=== PATIENT | female | born 1970 | race Caucasian/White ===

== ENCOUNTER 2016-08-23 12:08 | Emergency (ER) | payer OTHER ==
[~2016-08-23] VITALS: Ht 165.1 cm; Wt 71.2 kg
[~2016-08-23 12:08] MED LIST: ACYCLOVIR400 MG PO; ETODOLAC400 M2 PO; HYDROCODONE BIT1 T11 PO; NO DAILY MEDS; PRINIVIL20 MG PO; SERTRALINE HYDR50 MG PO; SYNTHROID RP0.088 MG PO; TRAMADOL HCL50 MG PO; VICODIN ES 7501 TAB PO
[2016-08-23 12:12] VITALS: BP 124/78
[2016-08-23] MEDS ORDERED: PREDNISONE10 MG PO (12:38)
== END 2016-08-23 12:42 | disposition home or self-care (01) ==
LOC: ED 12:08
DX: L50.9 Urticaria, unspecified (principal); Z79.899 Other long term (current) drug therapy

== ENCOUNTER 2016-10-21 18:40 | Emergency (ER) | payer OTHER ==
[~2016-10-21] VITALS: Ht 165.1 cm; Wt 68.0 kg
[~2016-10-21 18:40] MED LIST changes: +PREDNISONE10 MG PO
[2016-10-21 19:15] VITALS: BP 133/89
== END 2016-10-21 21:14 | disposition home or self-care (01) ==
LOC: ED 18:40
DX: S92.414A Nondisplaced fracture of proximal phalanx of right great toe, initial encounter for closed fracture (principal); F17.200 Nicotine dependence, unspecified, uncomplicated; W22.8XXA Striking against or struck by other objects, initial encounter; Y93.89 Activity, other specified; Y92.89 Other specified places as the place of occurrence of the external cause; Y99.0 Civilian activity done for income or pay

== ENCOUNTER 2016-12-13 11:56 | Inpatient (IN) | payer OTHER ==
[~2016-12-13] VITALS: Ht 165.1 cm; Wt 64.9 kg
[2016-12-13 12:07] VITALS: BP 187/60
[2016-12-13 12:45] LABS: BASO % 0.4 % (0.0-1.0); EOS # 0.1 10*3/uL (0.0-0.4); EOS % 1.6 % (1.0-4.0); HEMATOCRIT 48.2 % (37.0-47.0); HEMOGLOBIN 15.9 g/dl (12.0-16.0); IG # 0.1 10*3/uL (0.0-0.1); LYMPH # 1.8 10*3/uL (1.3-4.4); LYMPH % 20.6 % (27.0-41.0); MEAN CORPUSCULAR HGB 32.3 pg (27.0-31.0); MEAN PLATELET VOLUME 8.7 fl (9.6-12.3); MONO # 0.4 10*3/uL (0.1-1.0); MONO % 4.9 % (3.0-9.0); NEUT # 6.4 10*3/uL (2.3-7.9); NEUT % 71.9 % (47.0-73.0); PLATELET COUNT AUTOMATED 398 10*3/uL (130-400); RED BLOOD COUNT 4.92 10*6/uL (4.10-5.10); RED CELL DISTRI WIDTH 13.1 % (0-14.5); WHITE BLOOD COUNT 8.9 10*3/uL (4.8-10.8)
[2016-12-13 13:01] LABS: ALBUMIN 4.8 gm/dl (3.1-4.5); ALKALINE PHOSPHATASE 109 U/L (45-117); BILIRUBIN, TOTAL 0.7 mg/dl (0.2-1.0); BUN 10 mg/dl (7-24); CARBON DIOXIDE 27 mmol/L (21-32); CHLORIDE 99 mmol/L (98-107); EST GLOM FILT AFRICAN AMERICAN > 60 ml/min; GLUCOSE 107 mg/dL (65-99); MAGNESIUM 2.3 mg/dL (1.5-2.1); POTASSIUM 3.5 mmol/L (3.5-5.1); SGOT/AST 23 IU/L (3-35); SGPT/ALT 26 U/L (12-78); SODIUM 137 mmol/L (136-145); TOTAL PROTEIN 8.8 gm/dL (6.4-8.2)
[2016-12-13 13:24] VITALS: BP 180/108
[2016-12-13 13:25] LABS: BILIRUBIN NEGATIVE (NEGATIVE); BLOOD TRACE-LYSED (NEGATIVE); CLARITY CLEAR (CLEAR); COLOR YELLOW (YELLOW); GLUCOSE NEGATIVE (NEGATIVE); KETONE NEGATIVE (NEGATIVE); LEUKO ESTERASE NEGATIVE (NEGATIVE); NITRITE NEGATIVE (NEGATIVE); PROTEIN NEGATIVE (NEGATIVE); SPECIFIC GRAVITY <= 1.005 (1.005-1.030); UROBILINOGEN 0.2 E.U./dl (0.2-1.0)
[2016-12-13 13:31] LABS: RBC 0-2 rbc/hpf (0-2); URINE REFLEX COMMENT NO (NO); WBC 0-2 wbc/hpf (0-5)
[2016-12-13 13:33] LABS: URINE AMPHETAMINES < 1000 (1000ng/ml); URINE BARBITURATES < 200 (200ng/ml); URINE COCAINE < 300 (300ng/ml)
[2016-12-13 16:00] VITALS: BP 142/96
[2016-12-13 20:00] VITALS: BP 140/92
[2016-12-14] VITALS: BP 141/86
[2016-12-14 04:00] VITALS: BP 110/78
[2016-12-14 08:00] VITALS: BP 121/89
[2016-12-14] MEDS ORDERED: ATARAX,VISTARIL50 MG PO (11:55)
[2016-12-14] MEDS ORDERED: METHOCARBAMOL750 M1 PO (11:55)
[2016-12-14] MEDS ORDERED: DICYCLOMINE HCL20 MG PO (11:55)
[2016-12-14] MEDS ORDERED: ZOFRAN 4 MG ED2 TAB PO (11:55)
[2016-12-14] MEDS ORDERED: ROPINIROLE HYD0.5 MG PO (11:55)
== END 2016-12-14 12:47 | disposition home or self-care (01) | DRG 897 ==
LOC: ED 11:56 → EDHOLD 12:33 → 4E 12:43
PROVIDERS: Emergency Medicine
DX: F11.23 Opioid dependence with withdrawal (principal); I10 Essential (primary) hypertension; E03.9 Hypothyroidism, unspecified; F17.200 Nicotine dependence, unspecified, uncomplicated; F12.10 Cannabis abuse, uncomplicated; Z79.899 Other long term (current) drug therapy; Z84.89 Family history of other specified conditions

== ENCOUNTER 2016-12-20 20:24 | Emergency (ER) | payer OTHER ==
[~2016-12-20] VITALS: Ht 165.1 cm; Wt 65.8 kg
[~2016-12-20 20:24] MED LIST changes: +ATARAX,VISTARIL50 MG PO; +DICYCLOMINE HCL20 MG PO; +METHOCARBAMOL750 M1 PO; +ROPINIROLE HYD0.5 MG PO; +ZOFRAN 4 MG ED2 TAB PO
[2016-12-20 20:36] VITALS: BP 154/114
[2016-12-20 21:13] LABS: BILIRUBIN NEGATIVE (NEGATIVE); BLOOD NEGATIVE (NEGATIVE); CLARITY CLEAR (CLEAR); COLOR YELLOW (YELLOW); GLUCOSE NEGATIVE (NEGATIVE); KETONE NEGATIVE (NEGATIVE); LEUKO ESTERASE NEGATIVE (NEGATIVE); NITRITE NEGATIVE (NEGATIVE); PROTEIN NEGATIVE (NEGATIVE); UROBILINOGEN 0.2 E.U./dl (0.2-1.0)
[2016-12-20 21:22] LABS: BACTERIA 1+
[2016-12-20 21:23] LABS: URINE AMPHETAMINES < 1000 (1000ng/ml); URINE BARBITURATES < 200 (200ng/ml); URINE COCAINE < 300 (300ng/ml)
[2016-12-20 21:24] LABS: URINE REFLEX COMMENT NO (NO)
[2016-12-20 22:38] LABS: BASO % 0.4 % (0.0-1.0); EOS # 0.1 10*3/uL (0.0-0.4); EOS % 1.5 % (1.0-4.0); HEMATOCRIT 42.2 % (37.0-47.0); HEMOGLOBIN 14.1 g/dl (12.0-16.0); LYMPH # 2.4 10*3/uL (1.3-4.4); LYMPH % 26.6 % (27.0-41.0); MEAN CORPUSCULAR HGB 32.4 pg (27.0-31.0); MEAN CORPUSCULAR HGB CONC 33.4 g/dl (33.0-37.0); MEAN PLATELET VOLUME 8.8 fl (9.6-12.3); MONO # 0.6 10*3/uL (0.1-1.0); MONO % 6.2 % (3.0-9.0); NEUT % 65.1 % (47.0-73.0); PLATELET COUNT AUTOMATED 364 10*3/uL (130-400); RED BLOOD COUNT 4.35 10*6/uL (4.10-5.10); RED CELL DISTRI WIDTH 12.7 % (0-14.5); WHITE BLOOD COUNT 9.2 10*3/uL (4.8-10.8)
[2016-12-20 22:53] LABS: ALBUMIN 4.4 gm/dl (3.1-4.5); ALKALINE PHOSPHATASE 104 U/L (45-117); BILIRUBIN, TOTAL 0.4 mg/dl (0.2-1.0); BUN 9 mg/dl (7-24); CARBON DIOXIDE 28 mmol/L (21-32); CHLORIDE 101 mmol/L (98-107); EST GLOM FILT AFRICAN AMERICAN > 60 ml/min; GLUCOSE 95 mg/dL (65-99); POTASSIUM 3.5 mmol/L (3.5-5.1); SGOT/AST 20 IU/L (3-35); SGPT/ALT 20 U/L (12-78); SODIUM 138 mmol/L (136-145); TOTAL PROTEIN 7.9 gm/dL (6.4-8.2)
== END 2016-12-20 23:16 | disposition left against medical advice (07) ==
LOC: ED 20:24
PROVIDERS: Emergency Medicine
DX: F11.10 Opioid abuse, uncomplicated (principal); R61 Generalized hyperhidrosis; F12.10 Cannabis abuse, uncomplicated; F17.200 Nicotine dependence, unspecified, uncomplicated; Z79.899 Other long term (current) drug therapy

== ENCOUNTER 2017-04-13 18:30 | Emergency (ER) | payer OTHER ==
[~2017-04-13] VITALS: Wt 65.8 kg
[2017-04-13 19:04] VITALS: BP 97/65
[2017-04-13 19:27] LABS: BASO # 0.1 10*3/uL (0.0-0.1); BASO % 0.4 % (0.0-1.0); EOS # 0.3 10*3/uL (0.0-0.4); EOS % 2.4 % (1.0-4.0); HEMOGLOBIN 13.8 g/dl (12.0-16.0); LYMPH # 2.5 10*3/uL (1.3-4.4); LYMPH % 20.7 % (27.0-41.0); MEAN CELL VOLUME 94.5 fl (81.0-99.0); MEAN CORPUSCULAR HGB 31.8 pg (27.0-31.0); MEAN CORPUSCULAR HGB CONC 33.7 g/dl (33.0-37.0); MEAN PLATELET VOLUME 8.6 fl (9.6-12.3); MONO # 0.9 10*3/uL (0.1-1.0); MONO % 7.3 % (3.0-9.0); NEUT # 8.4 10*3/uL (2.3-7.9); NEUT % 68.5 % (47.0-73.0); PLATELET COUNT AUTOMATED 338 10*3/uL (130-400); RED BLOOD COUNT 4.34 10*6/uL (4.10-5.10); RED CELL DISTRI WIDTH 12.8 % (0-14.5); WHITE BLOOD COUNT 12.3 10*3/uL (4.8-10.8)
[2017-04-13 19:44] LABS: BUN 13 mg/dl (7-24); CHLORIDE 96 mmol/L (98-107); CREATININE 1.13 mg/dL (0.55-1.02); POTASSIUM 3.7 mmol/L (3.5-5.1); SODIUM 135 mmol/L (136-145)
[2017-04-13 19:47] LABS: ACETAMINOPHEN (TYLENOL) < 2.0 ug/ml (10-30)
[2017-04-13 20:06] LABS: BILIRUBIN NEGATIVE (NEGATIVE); BLOOD TRACE-INTACT (NEGATIVE); CLARITY CLEAR (CLEAR); COLOR YELLOW (YELLOW); GLUCOSE NEGATIVE (NEGATIVE); KETONE NEGATIVE (NEGATIVE); LEUKO ESTERASE NEGATIVE (NEGATIVE); NITRITE NEGATIVE (NEGATIVE); SPECIFIC GRAVITY 1.015 (1.005-1.030); UROBILINOGEN 0.2 E.U./dl (0.2-1.0)
[2017-04-13 20:14] LABS: URINE AMPHETAMINES < 1000 (1000ng/ml); URINE BARBITURATES < 200 (200ng/ml); URINE BENZODIAZEPINES < 200 (200ng/ml); URINE CANNABINOIDS (THC) < 50 (50ng/ml); URINE COCAINE < 300 (300ng/ml); URINE METHADONE < 300 (300ng/ml); URINE OPIATES < 300 (300ng/ml)
[2017-04-13 20:17] LABS: BACTERIA 1+; WBC 0-2 wbc/hpf (0-5)
[2017-04-13 20:18] LABS: URINE PHENCYCLIDINE < 25 (25ng/ml)
== END 2017-04-13 20:21 | disposition left against medical advice (07) ==
LOC: ED 18:30
PROVIDERS: Emergency Medicine Emergency Medical Services
DX: T40.1X1A Poisoning by heroin, accidental (unintentional), initial encounter (principal); F12.10 Cannabis abuse, uncomplicated; I10 Essential (primary) hypertension; Y92.89 Other specified places as the place of occurrence of the external cause

== ENCOUNTER 2017-05-02 17:02 | Inpatient (IN) | payer OTHER ==
[~2017-05-02] VITALS: Ht 165.1 cm; Wt 63.6 kg
[~2017-05-02 17:02] MED LIST changes: -SYNTHROID RP0.088 MG PO; +Synthroid,Lev150 MCG PO
[2017-05-02] MEDS ORDERED: LISINOPRIL20 MG PO (17:26)
[2017-05-02 17:28] VITALS: BP 112/83
[2017-05-02 18:02] LABS: BASO % 0.4 % (0.0-1.0); EOS # 0.1 10*3/uL (0.0-0.4); EOS % 1.6 % (1.0-4.0); HEMATOCRIT 43.3 % (37.0-47.0); HEMOGLOBIN 14.7 g/dl (12.0-16.0); LYMPH # 2.1 10*3/uL (1.3-4.4); LYMPH % 26.4 % (27.0-41.0); MEAN CELL VOLUME 93.1 fl (81.0-99.0); MEAN CORPUSCULAR HGB 31.6 pg (27.0-31.0); MEAN CORPUSCULAR HGB CONC 33.9 g/dl (33.0-37.0); MEAN PLATELET VOLUME 8.8 fl (9.6-12.3); MONO # 0.6 10*3/uL (0.1-1.0); MONO % 7.5 % (3.0-9.0); NEUT # 5.1 10*3/uL (2.3-7.9); NEUT % 63.7 % (47.0-73.0); PLATELET COUNT AUTOMATED 388 10*3/uL (130-400); RED BLOOD COUNT 4.65 10*6/uL (4.10-5.10); RED CELL DISTRI WIDTH 12.8 % (0-14.5)
[2017-05-02] MEDS ORDERED: ZOVIRAX400 MG PO (18:09)
[2017-05-02] MEDS ORDERED: VISTARIL50 MG PO (18:09)
[2017-05-02 18:20] LABS: BILIRUBIN NEGATIVE (NEGATIVE); BLOOD TRACE-LYSED (NEGATIVE); CLARITY CLEAR (CLEAR); COLOR YELLOW (YELLOW); GLUCOSE NEGATIVE (NEGATIVE); KETONE TRACE (NEGATIVE); LEUKO ESTERASE NEGATIVE (NEGATIVE); NITRITE NEGATIVE (NEGATIVE); UROBILINOGEN 0.2 E.U./dl (0.2-1.0)
[2017-05-02 18:22] LABS: ALBUMIN 4.4 gm/dl (3.1-4.5); BUN 18 mg/dl (7-24); CHLORIDE 101 mmol/L (98-107); CREATININE 0.99 mg/dL (0.55-1.02); POTASSIUM 4.4 mmol/L (3.5-5.1); SGOT/AST 15 IU/L (3-35); SODIUM 136 mmol/L (136-145)
[2017-05-02 18:28] LABS: BACTERIA 2+; MUCOUS TRACE; URINE AMPHETAMINES < 1000 (1000ng/ml); URINE BARBITURATES < 200 (200ng/ml); URINE BENZODIAZEPINES < 200 (200ng/ml); URINE CANNABINOIDS (THC) < 50 (50ng/ml); URINE COCAINE < 300 (300ng/ml); URINE METHADONE < 300 (300ng/ml); URINE OPIATES < 300 (300ng/ml); WBC 0-2 wbc/hpf (0-5)
[2017-05-02 18:33] LABS: URINE PHENCYCLIDINE < 25 (25ng/ml)
[2017-05-02 18:34] LABS: ACETAMINOPHEN (TYLENOL) < 2.0 ug/ml (10-30); ALKALINE PHOSPHATASE 83 U/L (45-117); ETHYL ALCOHOL < 3.0 mg/dl (<3); SGPT/ALT 18 U/L (12-78); TOTAL PROTEIN 8.4 gm/dL (6.4-8.2); TROPONIN I < 0.015 ng/ml (<0.045)
[2017-05-02 19:54] VITALS: BP 120/84
[2017-05-02 20:25] VITALS: BP 128/84
[2017-05-03] VITALS: BP 100/57
[2017-05-03 04:00] VITALS: BP 105/57
[2017-05-03 08:00] VITALS: BP 94/55
[2017-05-03 12:00] VITALS: BP 95/53
[2017-05-03 16:00] VITALS: BP 96/54
[2017-05-03 20:00] VITALS: BP 105/65
[2017-05-04] VITALS: BP 102/54
[2017-05-04 04:00] VITALS: BP 108/57
[2017-05-04 08:00] VITALS: BP 109/57
[2017-05-04 12:00] VITALS: BP 108/70
[2017-05-04 16:00] VITALS: BP 108/63
[2017-05-04 20:00] VITALS: BP 117/77
[2017-05-05] VITALS: BP 114/68
[2017-05-05 04:00] VITALS: BP 112/64
[2017-05-05 07:25] LABS: BASO # 0.1 10*3/uL (0.0-0.1); BASO % 0.9 % (0.0-1.0); EOS # 0.3 10*3/uL (0.0-0.4); EOS % 4.5 % (1.0-4.0); HEMATOCRIT 39.6 % (37.0-47.0); HEMOGLOBIN 13.3 g/dl (12.0-16.0); LYMPH # 2.7 10*3/uL (1.3-4.4); MEAN CELL VOLUME 95.7 fl (81.0-99.0); MEAN CORPUSCULAR HGB 32.1 pg (27.0-31.0); MEAN CORPUSCULAR HGB CONC 33.6 g/dl (33.0-37.0); MEAN PLATELET VOLUME 8.9 fl (9.6-12.3); MONO # 0.5 10*3/uL (0.1-1.0); MONO % 9.3 % (3.0-9.0); NEUT # 2.2 10*3/uL (2.3-7.9); NEUT % 38.1 % (47.0-73.0); PLATELET COUNT AUTOMATED 288 10*3/uL (130-400); RED BLOOD COUNT 4.14 10*6/uL (4.10-5.10); RED CELL DISTRI WIDTH 12.3 % (0-14.5); WHITE BLOOD COUNT 5.8 10*3/uL (4.8-10.8)
[2017-05-05 08:00] VITALS: BP 115/83
[2017-05-05 12:00] VITALS: BP 116/71
== END 2017-05-05 13:30 | disposition home or self-care (01) | DRG 897 ==
LOC: ED 17:02 → 5E 17:57 → EDHOLD 17:57 → 5E 18:03
PROVIDERS: Nurse Practitioner Family; ADMIT Emergency Medicine
DX: F11.23 Opioid dependence with withdrawal (principal); E03.9 Hypothyroidism, unspecified; F41.9 Anxiety disorder, unspecified; G25.81 Restless legs syndrome; I10 Essential (primary) hypertension; F17.200 Nicotine dependence, unspecified, uncomplicated; F12.10 Cannabis abuse, uncomplicated; Z80.9 Family history of malignant neoplasm, unspecified; Z71.6 Tobacco abuse counseling

== ENCOUNTER 2017-06-23 17:14 | Emergency (ER) | payer OTHER ==
[~2017-06-23] VITALS: Ht 165.1 cm; Wt 63.5 kg
[~2017-06-23 17:14] MED LIST changes: +LISINOPRIL20 MG PO; +VISTARIL50 MG PO; +ZOVIRAX400 MG PO
[2017-06-23 17:24] VITALS: BP 160/100
[2017-06-23] MEDS ORDERED: NAPROSYN500 MG PO (18:55)
== END 2017-06-23 19:00 | disposition home or self-care (01) ==
LOC: ED 17:14
DX: S90.32XA Contusion of left foot, initial encounter (principal); F12.10 Cannabis abuse, uncomplicated; F17.200 Nicotine dependence, unspecified, uncomplicated; E03.9 Hypothyroidism, unspecified; E11.10 Type 2 diabetes mellitus with ketoacidosis without coma; I10 Essential (primary) hypertension; Z98.890 Other specified postprocedural states; Z98.51 Tubal ligation status; Z79.899 Other long term (current) drug therapy; W00.2XXA Other fall from one level to another due to ice and snow, initial encounter; Y93.89 Activity, other specified; Y92.89 Other specified places as the place of occurrence of the external cause; Y99.9 Unspecified external cause status

== ENCOUNTER 2017-12-04 14:09 | Emergency (ER) | payer OTHER ==
[~2017-12-04] VITALS: Ht 165.1 cm; Wt 65.8 kg
[~2017-12-04 14:09] MED LIST changes: +NAPROSYN500 MG PO
[2017-12-04 14:12] VITALS: BP 156/102
[2017-12-04] MEDS ORDERED: ULTRAM50 MG PO (16:54)
== END 2017-12-04 16:37 | disposition home or self-care (01) ==
LOC: ED 14:09
DX: S22.41XA Multiple fractures of ribs, right side, initial encounter for closed fracture (principal); Z79.899 Other long term (current) drug therapy; V86.99XA Unspecified occupant of other special all-terrain or other off-road motor vehicle injured in nontraffic accident, initial encounter; Y93.89 Activity, other specified; Y92.89 Other specified places as the place of occurrence of the external cause; Y99.8 Other external cause status

== ENCOUNTER 2018-11-12 12:37 | Emergency (ER) | payer OTHER ==
[~2018-11-12] VITALS: Ht 165.1 cm; Wt 72.6 kg
[~2018-11-12 12:37] MED LIST changes: +ULTRAM50 MG PO
[2018-11-12 12:38] VITALS: BP 110/76
== END 2018-11-12 14:47 | disposition home or self-care (01) ==
LOC: ED 12:37
DX: S92.534A Nondisplaced fracture of distal phalanx of right lesser toe(s), initial encounter for closed fracture (principal); E03.9 Hypothyroidism, unspecified; I10 Essential (primary) hypertension; Z79.899 Other long term (current) drug therapy; W22.8XXA Striking against or struck by other objects, initial encounter; Y93.89 Activity, other specified; Y92.89 Other specified places as the place of occurrence of the external cause; Y99.8 Other external cause status

== ENCOUNTER → 2020-04-06 | Outpatient (CLI) | payer OTHER | END | disposition home or self-care (01) | LOC: COVID19 13:39 | PROVIDERS: ATTEND Internal Medicine | DX: Z20.828 Contact with and (suspected) exposure to other viral communicable diseases (principal) ==

== ENCOUNTER → 2020-05-29 | Outpatient (CLI) | payer OTHER | END | disposition home or self-care (01) | LOC: COVID19 11:30 | PROVIDERS: ATTEND Internal Medicine | DX: Z20.822 Contact with and (suspected) exposure to COVID-19 (principal) ==

== ENCOUNTER 2020-10-15 12:40 | Emergency (ER) | payer OTHER ==
[~2020-10-15] VITALS: Ht 162.5 cm; Wt 68.0 kg
[2020-10-15 12:45] VITALS: BP 136/92
[2020-10-15] MEDS ORDERED: AMOXICILLIN500 M2 PO (14:48)
== END 2020-10-15 14:50 | disposition home or self-care (01) ==
LOC: ED 12:40
DX: J32.9 Chronic sinusitis, unspecified (principal); Z79.899 Other long term (current) drug therapy; Z98.890 Other specified postprocedural states; Z98.51 Tubal ligation status

== ENCOUNTER 2020-12-02 13:00 | Emergency (ER) | payer OTHER ==
[~2020-12-02] VITALS: Ht 165.1 cm; Wt 70.3 kg
[~2020-12-02 13:00] MED LIST changes: +AMOXICILLIN500 M2 PO
[2020-12-02 13:06] VITALS: BP 134/86
== END 2020-12-02 14:56 | disposition home or self-care (01) ==
LOC: ED 13:00
DX: M25.571 Pain in right ankle and joints of right foot (principal); F17.200 Nicotine dependence, unspecified, uncomplicated; Z98.890 Other specified postprocedural states; Z79.2 Long term (current) use of antibiotics; Z79.899 Other long term (current) drug therapy; X50.1XXA Overexertion from prolonged static or awkward postures, initial encounter; Y93.89 Activity, other specified; Y92.002 Bathroom of unspecified non-institutional (private) residence as the place of occurrence of the external cause; Y99.8 Other external cause status

== ENCOUNTER 2021-09-16 14:07 | Emergency (ER) | payer OTHER ==
[2021-09-16 14:11] VITALS: BP 141/59
[2021-09-16] MEDS ORDERED: CALAMINE LOTIO177 M2 T (14:24)
[2021-09-16] MEDS ORDERED: BENADRYL ITCH103 ML T (14:24)
[2021-09-16] MEDS ORDERED: CLOBETASOL EMOL15 GM T (14:24)
== END 2021-09-16 14:30 | disposition home or self-care (01) ==
LOC: ED 14:07
DX: L23.7 Allergic contact dermatitis due to plants, except food (principal); Z79.899 Other long term (current) drug therapy; E03.9 Hypothyroidism, unspecified; Z98.51 Tubal ligation status; Z98.890 Other specified postprocedural states

== ENCOUNTER 2023-01-22 17:15 | Emergency (ER) | payer OTHER ==
[~2023-01-22] VITALS: Ht 165.1 cm; Wt 68.0 kg
[~2023-01-22 17:15] MED LIST changes: +BENADRYL ITCH103 ML T; +CALAMINE LOTIO177 M2 T; +CLOBETASOL EMOL15 GM T
[2023-01-22 17:55] VITALS: BP 129/89
== END 2023-01-22 19:44 | disposition left against medical advice (07) ==
LOC: ED 17:15
DX: R21 Rash and other nonspecific skin eruption (principal); Z53.21 Procedure and treatment not carried out due to patient leaving prior to being seen by health care provider

== ENCOUNTER 2023-01-28 16:13 | Emergency (ER) | payer OTHER ==
[~2023-01-28] VITALS: Ht 165.1 cm; Wt 72.6 kg
[2023-01-28 16:33] VITALS: BP 150/98
[2023-01-28] MEDS ORDERED: PREDNISONE20 M1 PO (17:07)
[2023-01-28] MEDS ORDERED: CEPHALEXIN500 M1 PO (17:07)
== END 2023-01-28 17:12 | disposition home or self-care (01) ==
LOC: ED 16:13
DX: L23.7 Allergic contact dermatitis due to plants, except food (principal); L03.811 Cellulitis of head [any part, except face]; I10 Essential (primary) hypertension; Z98.890 Other specified postprocedural states; F12.10 Cannabis abuse, uncomplicated

== ENCOUNTER 2023-03-19 14:25 | Emergency (ER) | payer OTHER ==
[~2023-03-19] VITALS: Ht 165.1 cm; Wt 72.6 kg
[~2023-03-19 14:25] MED LIST changes: +CEPHALEXIN500 M1 PO; +PREDNISONE20 M1 PO
[2023-03-19 15:01] VITALS: BP 156/100
[2023-03-19] MEDS ORDERED: PREDNISONE20 M1 PO (15:08)
== END 2023-03-19 15:52 | disposition home or self-care (01) ==
LOC: ED 14:25
DX: T78.40XA Allergy, unspecified, initial encounter (principal); I10 Essential (primary) hypertension; F41.9 Anxiety disorder, unspecified; E03.9 Hypothyroidism, unspecified; Z98.890 Other specified postprocedural states; Z98.51 Tubal ligation status; F17.200 Nicotine dependence, unspecified, uncomplicated; F12.10 Cannabis abuse, uncomplicated; Y93.E9 Activity, other interior property and clothing maintenance

== ENCOUNTER 2024-10-26 17:00 | Emergency (ER) | payer OTHER ==
[~2024-10-26] VITALS: Ht 165.1 cm; Wt 70.3 kg
[2024-10-26 17:46] LABS: BASO % 0.4 % (0.0-1.0); EOS # 0.1 10*3/uL (0.0-0.4); EOS % 0.9 % (1.0-4.0); HEMATOCRIT 42.5 % (37.0-47.0); MEAN CELL VOLUME 94.9 fl (81.0-99.0); MEAN CORPUSCULAR HGB 31.7 pg (27.0-31.0); MEAN CORPUSCULAR HGB CONC 33.4 g/dl (33.0-37.0); MEAN PLATELET VOLUME 8.6 fl (9.6-12.3); MONO # 0.6 10*3/uL (0.1-1.0); MONO % 6.7 % (3.0-9.0); NEUT # 6.1 10*3/uL (2.3-7.9); NEUT % 68.1 % (47.0-73.0); PLATELET COUNT AUTOMATED 350 10*3/uL (130-400); RED BLOOD COUNT 4.48 10*6/uL (4.10-5.10); RED CELL DISTRI WIDTH 12.2 % (0-14.5); WHITE BLOOD COUNT 8.9 10*3/uL (4.8-10.8)
[2024-10-26] MEDS ORDERED: MORPHINE Sulfate 2 MG/ML SYR IV ONE (17:50)
[2024-10-26 18:11] LABS: BUN 12 mg/dl (9-23); CHLORIDE 100 mmol/L (98-107); POTASSIUM 3.5 mmol/L (3.4-5.1)
[2024-10-26 20:22] VITALS: BP 153/107
== END 2024-10-26 20:53 | disposition home or self-care (01) ==
LOC: ED 17:00
PROVIDERS: Nurse Practitioner Family
DX: M94.0 Chondrocostal junction syndrome [Tietze] (principal); I10 Essential (primary) hypertension; Z79.899 Other long term (current) drug therapy; F17.200 Nicotine dependence, unspecified, uncomplicated; Z98.890 Other specified postprocedural states

== ENCOUNTER 2025-03-08 17:11 | Emergency (ER) | payer SELFPAY ==
[~2025-03-08] VITALS: Ht 165.1 cm; Wt 72.6 kg
[2025-03-08 17:36] VITALS: BP 156/106
[2025-03-08] MEDS ORDERED: LEVOTHYROXINE175 MCG PO (17:38)
[2025-03-08] MEDS ORDERED: IBU600 M1 PO (19:53)
[2025-03-08] MEDS ORDERED: HYDROCODONE-AC1 EAC1 PO (19:53)
== END 2025-03-08 20:07 | disposition home or self-care (01) ==
LOC: ED 17:11
DX: S22.42XA Multiple fractures of ribs, left side, initial encounter for closed fracture (principal); I10 Essential (primary) hypertension; E03.9 Hypothyroidism, unspecified; Z79.899 Other long term (current) drug therapy; Z98.890 Other specified postprocedural states; X50.1XXA Overexertion from prolonged static or awkward postures, initial encounter; Y93.89 Activity, other specified; Y92.89 Other specified places as the place of occurrence of the external cause; Y99.8 Other external cause status

== ENCOUNTER 2025-04-12 17:03 | Emergency (ER) | payer SELFPAY ==
[~2025-04-12] VITALS: Ht 165.1 cm; Wt 72.6 kg
[~2025-04-12 17:03] MED LIST changes: +HYDROCODONE-AC1 EAC1 PO; +IBU600 M1 PO; +LEVOTHYROXINE175 MCG PO
[2025-04-12 17:21] VITALS: BP 154/98
[2025-04-12] MEDS ORDERED: AMOX-CLAV 875-1 EACH PO (18:15)
[2025-04-12] MEDS ORDERED: Amoxicillin/Clavulanate Pota 875 MG TAB PO ONE (18:20)
== END 2025-04-12 18:28 | disposition home or self-care (01) ==
LOC: ED 17:03
DX: J01.90 Acute sinusitis, unspecified (principal); I10 Essential (primary) hypertension; E03.9 Hypothyroidism, unspecified; Z98.890 Other specified postprocedural states